=== PATIENT | female | born 1990 | race Caucasian/White ===

== ENCOUNTER 2017-09-21 13:24 | Outpatient (CLI) | payer OTHER | END 2017-09-21 13:25 | disposition home or self-care (01) | LOC: BICRAD 13:24 | PROVIDERS: ATTEND Family Medicine | DX: R05 Cough (principal) | CPT/HCPCS: 71046 ==

== ENCOUNTER 2018-03-04 20:25 | Emergency (ER) | payer OTHER ==
--- NOTE | 2018-03-05 01:32 | CT ---
HEAD CT WITHOUT CONTRAST: HISTORY: Migraines x3 days. History of pseudo tumor. FINDINGS: No parenchymal hemorrhage. No extraaxial hematoma. No midline shift. The basilar cisterns are allen nt. Brain volume is age appropriate. Cortical richard white matter differentiation is preserved. The ventricles and sulci are patent. Slight asymmetry of the ventricular system is nonspecific. No evidence of hydrocephalus. The calvarium is intact. Adequate mastoid air cell aeration. There appe ars to be bilateral maxillary sinus mucosal disease, as well as mucosal disease involving the left sp henoid sinus and ethmoid air cells bilaterally. There appear to be lucencies involving the posterior most maxillary molar teeth bilaterally. IMPRESSION: 1. Paranasal sinus disease. 2. Periapical lucencies involving the posterior most maxillary molar teeth. Evaluation is incomplet e. The sinus disease that is described above may be odontogenic in origin. A nonemergent consultati on with a dentist is recommended. POS: [facility]
[2018-03-05] MEDS ORDERED: diphenhydrAMINE 50 MG/ML VIAL ONE (01:44)
[2018-03-05] MEDS ORDERED: Metoclopramide HCl 10 MG/2 ML VIAL ONE (01:44)
[2018-03-05] MEDS ORDERED: Ketorolac Tromethamine 30 MG/ML VIAL ONE (01:44)
[2018-03-05] MEDS ORDERED: Water For Inject, Bacteriostat 30 ML ONE (02:46)
[2018-03-05] MEDS ORDERED: methylPREDNISolone Sod Succ/PF 125 MG/2 ML VIAL ONE (02:46)
[2018-03-05] MEDS ORDERED: Magnesium Sulfate 2 GM in Sodium Chloride 0.9% 100 ML IVPB SCH (03:00)
== END 2018-03-05 03:45 | disposition home or self-care (01) ==
LOC: ERS 20:25
DX: G43.909 Migraine, unspecified, not intractable, without status migrainosus (principal); I10 Essential (primary) hypertension; F41.9 Anxiety disorder, unspecified; Z87.891 Personal history of nicotine dependence; Z79.899 Other long term (current) drug therapy
CPT/HCPCS: 70450; 96365; 96367; 96375; J1200; J1885; J2765; J2930; J3475; J7050

== ENCOUNTER 2019-07-28 02:12 | Emergency (ER) | payer OTHER ==
[2019-07-28 03:09] LABS: BHCG - Serum Negative (NEGATIVE); Pregs Control Background? CLEAR/WHITE (CLR/WHITE); Pregs Control Bar Appear? YES (CONTROL BAR)
[2019-07-28 03:11] LABS: #Basophils 0.1 thou/uL (0.0-0.2); #Eosinphils 0.3 thou/uL (0.0-0.7); #Lymphocytes 4.4 thou/uL (1.20-3.40); #Monocytes 0.7 thou/uL (0.11-0.59); #Neutrophils 5.7 thou/uL (1.40-6.50); %Lymphocytes 39.3 % (21.0-51.0); %Monocytes 5.9 % (0.0-10.0); %Neutrophils 50.8 % (42.0-75.0); Hemoglobin 13.6 g/dL (12.0-16.0); Mean Corpuscular HGB CONC 33.5 g/dL (32.0-36.0); Mean Corpuscular Hemoglobin 28.7 pg (27.0-31.0); Mean Corpuscular Volume 85.8 fL (78.0-98.0); Mean Platelet Volume 10.8 fL (7.4-10.4); Platelet Count 189 thou/uL (130-400); RBC Distribution Width 12.4 % (11.5-14.5); Red Blood Cell (RBC) Count 4.74 mill/uL (4.20-5.40); White Blood Cell (WBC) Count 11.2 thou/uL (4.8-10.8)
[2019-07-28 03:19] LABS: ALT (SGPT) 20 U/L (8-55); AST (SGOT) 14 U/L (5-34); Albumin 3.7 g/dL (3.5-5.0); Alkaline Phosphatase 70 U/L (40-110); Anion Gap 14 mmol/L (10-20); BUN (Urea Nitrogen) 11 mg/dL (7.0-18.7); Bilirubin, Total 0.3 mg/dL (0.2-1.2); Calc. Creatinine Clearance 0 mL/min (70-130); Calcium 8.9 mg/dL (7.8-10.44); Carbon Dioxide 16 mmol/L (22-29); Chloride 111 mmol/L (98-107); Estimated GFR-MDRD Greater than 90; Globulin 2.7 g/dL (2.4-3.5); Glucose 152 mg/dL (70-105); Lipase 22 U/L (8-78); Potassium 3.1 mmol/L (3.5-5.1); Protein, Total 6.4 g/dL (6.0-8.3); Sodium 138 mmol/L (136-145)
[2019-07-28] MEDS ORDERED: Ketorolac Tromethamine 60 MG/2 ML VIAL ONE (03:19)
[2019-07-28] MEDS ORDERED: Ondansetron PF 4 MG/2 ML Vial ONE (03:19)
[2019-07-28 05:11] LABS: Bilirubin Negative (Negative); Blood, Urine 1+ (Negative); Clarity Clear (Clear); Glucose, Urine (Dipstick) Normal (Negative); Leukocyte Negative Leu/uL (Negative); Nitrite Negative (Negative); Protein, Urine (Dipstick) 20 mg/dL (Neg-Trace); Urobilinogen Normal mg/dL (Less than 2); WBC/HPF 0-3 HPF (0-3)
[2019-07-28 05:19] LABS: Bacteria/HPF 1+ HPF (None Seen)
--- NOTE | 2019-07-28 07:37 | CT ---
PRELIMINARY REPORT/[facility]/EMERGENCY AFTER HOURS PROCEDURE: EXAM: CT Abdomen and Pelvis Without Intravenous Contrast CLINICAL HISTORY: ER 8... F28 presents to ED w R sided pain. Pt reports she felt fine until went to s leep with some nausea, waking from sleep with pain. Pt then went to bathroom and passed out, found by . Pt remembers feeling sweaty before vasovagal episode COMPARISON: US - US GALLBLADDER RUQ - 07/28/2019 02:55 AM RESEARCH DEVELOPMENT DIRECTOR FINDINGS: LUNG BASES: No basilar airspace consolidation or pleural effusion. LIVER: Hepatic steatosis. Tiny right hepatic lobe hypodensity, too small to accurately characterize. GALLBLADDER AND BILE DUCTS: No calcified gallstone. No biliary ductal dilation. PANCREAS: Unremarkable. SPLEEN: Unremarkable. ADRENAL GLANDS: Unremarkable. KIDNEYS, URETERS, AND BLADDER: Partially obstructing 5 mm calculus at the right ureterovesicular junc tion causing mild right hydronephrosis. Nonobstructing 4-6 mm left renal calculi. No left hydronephrosis. STOMACH AND BOWEL: Small hiatal hernia. No evidence of bowel obstruction. Mild fecal retention. APPENDIX: Normal appendix. PERITONEUM: No free air or sizable fluid collection. LYMPH NODES: Numerous nonspecific top normal size mesenteric lymph nodes, possibly reactive in etiolo gy. REPRODUCTIVE: Unremarkable as visualized. VASCULATURE: No aortic aneurysm. ABDOMINAL WALL AND SOFT TISSUES: Tiny fat-containing umbilical hernia. BONES: No fracture or suspicious osseous abnormality. IMPRESSION: 1. Partially obstructing 5 mm calculus at the right ureterovesicular junction causing mild right hydr onephrosis. 2. Nonobstructing 4-6 mm left renal calculi. ELECTRONICALLY SIGNED BY:Samuel Weber MD Jul 28, 2019 4:35:43 AM RESEARCH DEVELOPMENT DIRECTOR FINAL REPORT CT ABDOMEN AND PELVIS NONCONTRAST: DATE: 07/28/2019 TIME: Performed on emergency basis at 0352 hours. HISTORY: Right flank pain. FINDINGS: Agree with the preliminary report by Dr. Weber from [facility]. The tiny calcification at the general location of the right ureterovesicular junction may result in very low-grade obstruction or may have already passed into the urinary bladder with residual distention of the right renal collecti ng system and ureter. Nonobstructing left renal calculi are confirmed. Lack of contrast limits evaluation of the soft tissues for other abnormality. Transcribed Date/Time: 07/28/2019 8:05 AM
--- NOTE | 2019-07-28 08:07 | RAD ---
CHEST 1 VIEW PORTABLE: Date: 07/28/19 HISTORY: Right lower quadrant pain. FINDINGS: Heart size is normal. The lungs are clear. No pneumonia, edema, pleural effusion, or other acute proc ess. IMPRESSION: No acute intrathoracic disease. POS: [facility]
--- NOTE | 2019-07-28 08:41 | ULT ---
PRELIMINARY REPORT/[facility]/EMERGENCY AFTER HOURS PROCEDURE: EXAM: US Abdomen Limited, Right Upper Quadrant. CLINICAL HISTORY: HX: RT SIDED ABD PAIN. TECHNIQUE: Real-time ultrasound of the right upper quadrant with image documentation. COMPARISON: None provided. FINDINGS: Evaluation is limited due to the patient's body habitus LIVER: Unremarkable. GALLBLADDER: No gallstone. No wall thickening. No pericholecystic fluid. COMMON BILE DUCT: No dilation. Measures 5.1 mm PANCREAS: Unremarkable as visualized. The distal pancreas is obscured by overlying bowel gas. RIGHT KIDNEY: Measures 11.9 cm and demonstrates mild hydronephrosis. IMPRESSION: Mild right-sided hydronephrosis ELECTRONICALLY SIGNED BY: Reynold Hogan MD Jul 28, 2019 3:35:56 AM CLINICAL NUTRITIONIST This report is intended for review by the ordering physician only, in accordance of law. If you recei ve this report in error, please call [facility] at [phone]. FINAL REPORT EMERGENCY AFTER HOURS RIGHT UPPER QUADRANT ULTRASOUND: Date: 07/28/19 HISTORY: Right-sided abdominal pain. IMPRESSION: Mild right hydronephrosis Findings are in agreement with the preliminary report by [facility]. POS: [facility]
== END 2019-07-28 05:38 | disposition home or self-care (01) ==
LOC: ERS 02:12
DX: N13.2 Hydronephrosis with renal and ureteral calculous obstruction (principal); R55 Syncope and collapse; F41.9 Anxiety disorder, unspecified; I10 Essential (primary) hypertension; Z87.891 Personal history of nicotine dependence; Z79.899 Other long term (current) drug therapy
CPT/HCPCS: 36415; 71045; 74176; 76705; 80053; 81003; 81015; 83690; 84703; 85025; 93005; 96374; J1885; J2405

== ENCOUNTER 2019-09-04 10:54 | Outpatient (CLI) | payer OTHER ==
--- NOTE | 2019-09-04 11:22 | CT ---
CT OF THE ABDOMEN AND PELVIS WITHOUT IV CONTRAST INDICATION: Persistent right-sided abdominal pain concerning for a right ureteral stone. COMPARISON: CT of the abdomen and pelvis dated July 28, [address] [facility]. FINDINGS: This examination is limited for the evaluation of solid organs and vascular structures due to the lac k of intravenous contrast. ABDOMEN: Lung bases: Clear Liver: No focal lesion. Gallbladder: Normal appearing. Pancreas: Normal. Adrenal glands: Normal. Spleen: Normal. Kidneys and ureters: There are 2 stable nonobstructing calculi involving inferior pole of the left ki dney one measuring 5 mm an additional measuring 4 mm. No hydronephrosis or left-sided ureteral calculus is demonstrated. There is a new 4 mm calculus involving inferior pole of the right kidney. P reviously seen right UVJ calculus has passed. No visualized bladder stone is evident. Vasculature: Normal. Lymph nodes:No lymphadenopathy. Free fluid in abdomen:No free fluid is evident. PELVIS: Small and large bowel: Normal Appendix:Normal Bladder: Normal. Rectal and perirectal soft tissues:Normal. Reproductive structures: Normal. Free fluid in pelvis: No free fluid is evident. Lymphadenopathy pelvis: No lymphadenopathy is evident. Osseous structures: No acute osseous abnormality. No destructive osteolytic or osteoblastic lesion i s identified. Soft tissues:Normal. IMPRESSION: 1. Interval passage of the previously seen right UVJ calculus. 2. New nonobstructing inferior pole right renal calculus. 3. Stable left-sided nephrolithiasis.
== END 2019-09-04 10:55 | disposition home or self-care (01) ==
LOC: BICCT 10:54
PROVIDERS: ATTEND Urology
DX: N20.1 Calculus of ureter (principal); N20.0 Calculus of kidney
CPT/HCPCS: 74176